=== PATIENT | female | born 1985 | race Caucasian/White ===

== ENCOUNTER → 2025-06-06 08:05 | Outpatient (REF) | payer OTHER, SELFPAY | LOC: HWRAD 08:05 | PROVIDERS: ATTENDING PHYSICIAN Family Medicine | DX: M79.89 Other specified soft tissue disorders (principal) | CPT/HCPCS: 70450; 76536 ==

== ENCOUNTER 2025-09-27 06:20 | Day surgery (SDC) | payer OTHER, SELFPAY ==
[2025-09-27] VITALS (7 sets, daily range): BP systolic 93–110; BP diastolic 56–69; BMI 20.8
[2025-09-27] MEDS: NORMOSOL-R/PLASMALYTE-A 1000 IV (10:14)
[2025-09-27 10:18] LABS: Hematocrit 39.3 % (37.0-47.0); Hemoglobin 13.5 g/dL (12.0-16.0)
[2025-09-27 10:27] LABS: HCG, Urine Qualitative Screen Negative
== END 2025-09-27 12:50 | disposition home or self-care (01) ==
LOC: SDS 06:20
PROVIDERS: ATTENDING PHYSICIAN Obstetrics & Gynecology Gynecology
DX: N87.0 Mild cervical dysplasia (principal)
CPT/HCPCS: 57460; 58110; 81025; 85014; 85018; 88305; 88307; 88342